=== PATIENT | female | born 1945 | race Caucasian/White ===

== ENCOUNTER → 2017-12-15 | Outpatient (CLI) | payer BC | LOC: MAMMO 14:29 | DX: Z13.820 Encounter for screening for osteoporosis (principal); M85.80 Other specified disorders of bone density and structure, unspecified site ==

== ENCOUNTER 2019-05-10 14:56 | Emergency (ER) | payer BC ==
[~2019-05-10] VITALS: Ht 157.5 cm; Wt 47.3 kg
[2019-05-10] MEDS ORDERED: ZYRTEC10 M3 PO (15:11)
[2019-05-10] MEDS ORDERED: SYNTHROID0.05 MG PO (15:11)
[2019-05-10] MEDS ORDERED: ZOLOFT25 M1 PO (15:12)
[2019-05-10 16:06] LABS: EOS # 0.1 (0.04-0.40); EOS % 1.8 % (1.0-5.0); HEMATOCRIT 39.9 % (37.0-47.0); HEMOGLOBIN 12.8 g/dL (12.5-16.0); LYMPH# 1.4 (1.50-4.00); MEAN CELL VOLUME 94 fl (78-100); MEAN CORPUSCULAR HEMOGLOBIN 30 pg (27-31); MEAN CORPUSCULAR HGB CONC 32 g/dL (33-37); MEAN PLATELET VOLUME 9.6 fl (7.4-10.4); MONO # 0.5 (0.20-0.80); NEU # 3.6 (1.40-6.50); PLATELET COUNT 283 K/mm3 (130-400); RED BLOOD COUNT 4.23 M/mm3 (4.10-5.30); RED CELL DISTRIBUTION WIDTH 12.4 % (11.5-14.5); WHITE BLOOD COUNT 5.6 K/mm3 (4.8-10.8)
[2019-05-10 16:13] LABS: ALBUMIN 3.9 g/dL (3.4-4.8)
[2019-05-10 16:14] LABS: POTASSIUM 4.1 mmol/L (3.5-5.1)
[2019-05-10 16:15] LABS: CALCIUM 9.5 mg/dL (8.3-10.5)
[2019-05-10 16:16] LABS: TOTAL PROTEIN 6.8 g/dL (6.2-8.1)
[2019-05-10 16:18] LABS: TOTAL BILIRUBIN 0.3 mg/dL (0.2-1.2)
[2019-05-10 18:14] VITALS: BP 120/73
== END 2019-05-10 18:15 | disposition home or self-care (01) ==
LOC: ED 14:56
PROVIDERS: Nurse Practitioner Family
DX: S92.252A Displaced fracture of navicular [scaphoid] of left foot, initial encounter for closed fracture (principal); S09.90XA Unspecified injury of head, initial encounter; M25.511 Pain in right shoulder; S90.31XA Contusion of right foot, initial encounter; F32.9 Major depressive disorder, single episode, unspecified; E07.9 Disorder of thyroid, unspecified; W11.XXXA Fall on and from ladder, initial encounter; Y92.009 Unspecified place in unspecified non-institutional (private) residence as the place of occurrence of the external cause
CPT/HCPCS: L4386

== ENCOUNTER → 2019-05-19 | Outpatient (CLI) | payer BC ==
[2019-05-10 18:14] VITALS: BP 120/73
[~2019-05-19] MED LIST: SYNTHROID0.05 MG PO; ZOLOFT25 M1 PO; ZYRTEC10 M3 PO
== END ==
LOC: RAD 08:21
DX: E04.1 Nontoxic single thyroid nodule (principal); Z90.89 Acquired absence of other organs

== ENCOUNTER → 2020-02-22 | Outpatient (CLI) | payer BC | LOC: MAMMO 13:45 | DX: Z12.31 Encounter for screening mammogram for malignant neoplasm of breast (principal) ==

== ENCOUNTER → 2020-05-10 | Outpatient (CLI) | payer BC | LOC: RAD 14:56 → LAB 14:56 → RAD 15:00 | DX: E04.1 Nontoxic single thyroid nodule (principal); Z68.20 Body mass index [BMI] 20.0-20.9, adult ==

== ENCOUNTER → 2021-02-27 | Outpatient (CLI) | payer BC | LOC: MAMMO 10:36 | DX: Z12.31 Encounter for screening mammogram for malignant neoplasm of breast (principal); M85.80 Other specified disorders of bone density and structure, unspecified site ==

== ENCOUNTER → 2021-11-26 | Outpatient (CLI) | payer BC | LOC: VAS 13:49 → RAD 14:00 | DX: R00.2 Palpitations (principal) ==

== ENCOUNTER → 2022-09-11 | Outpatient (CLI) | payer BC | LOC: RAD 09:14 | DX: M19.012 Primary osteoarthritis, left shoulder (principal); M19.011 Primary osteoarthritis, right shoulder; M17.0 Bilateral primary osteoarthritis of knee; M25.462 Effusion, left knee ==

== ENCOUNTER → 2023-04-07 | Outpatient (CLI) | payer BC | LOC: MAMMO 08:23 | DX: Z12.31 Encounter for screening mammogram for malignant neoplasm of breast (principal); Z13.820 Encounter for screening for osteoporosis; M85.80 Other specified disorders of bone density and structure, unspecified site ==

== ENCOUNTER → 2023-09-02 | Outpatient (CLI) | payer BC | LOC: RAD 07:56 | DX: M25.761 Osteophyte, right knee (principal) ==

== ENCOUNTER 2023-12-22 12:09 | Emergency (ER) | payer BC ==
[~2023-12-22] VITALS: Ht 157.5 cm; Wt 47.3 kg
[2023-12-22] MEDS ORDERED: ASPIRIN 81M81 MG/TA2 PO (12:17)
[2023-12-22] MEDS ORDERED: NS 1,000 ML IV SCH (12:30)
[2023-12-22] MEDS ORDERED: Ondansetron 4 MG/2 ML VIAL IV ONE (12:30)
[2023-12-22] MEDS ORDERED: Meclizine 12.5 MG TAB PO ONE (12:45)
[2023-12-22 12:51] LABS: BASO # 0.04 K/mm3 (0.02-0.10); EOS # 0.03 K/mm3 (0.04-0.40); EOS % 0.6 % (1.0-5.0); HEMATOCRIT 38.7 % (37.0-47.0); HEMOGLOBIN 13.2 g/dL (12.5-16.0); LYMPH# 1.24 K/mm3 (1.50-4.00); MEAN CELL VOLUME 94 fl (78-100); MEAN CORPUSCULAR HEMOGLOBIN 32 pg (27-31); MEAN CORPUSCULAR HGB CONC 34 g/dL (33-37); MEAN PLATELET VOLUME 9.5 fl (7.4-10.4); MONO # 0.27 K/mm3 (0.20-0.80); NEU # 3.37 K/mm3 (1.40-6.50); PLATELET COUNT 242 K/mm3 (130-400); RED CELL DISTRIBUTION WIDTH 11.8 % (11.5-14.5)
[2023-12-22 12:59] LABS: SODIUM 129 mmol/L (136-145)
[2023-12-22 13:00] LABS: CALCIUM 9.6 mg/dL (8.3-10.5)
[2023-12-22 13:01] LABS: GLUCOSE 115 mg/dL (65-105); TOTAL PROTEIN 6.4 g/dL (6.2-8.1)
[2023-12-22 13:02] LABS: CARBON DIOXIDE 25 mmol/L (23-31)
[2023-12-22 13:03] LABS: TOTAL BILIRUBIN 0.7 mg/dL (0.2-1.2)
[2023-12-22 13:06] LABS: AST-SGOT 30 U/L (5-34)
[2023-12-22 13:07] LABS: ALT/SGPT 23 U/L (0-55)
[2023-12-22 13:14] LABS: TROPONIN-I < 0.030 ng/mL (0.00-0.033)
[2023-12-22] MEDS ORDERED: Acetaminophen 325 MG TAB PO ONE (14:15)
[2023-12-22 14:29] LABS: PH-URINE 7.5 (5.0 - 8.0); URINE APPEARANCE CLEAR (CLEAR); URINE BILIRUBIN NEGATIVE (NEGATIVE); URINE BLOOD NEGATIVE (NEGATIVE); URINE COLOR YELLOW (YELLOW); URINE GLUCOSE NEGATIVE (NEGATIVE); URINE KETONE 1+ (NEGATIVE); URINE LEUKOCYTE ESTERASE NEGATIVE (NEGATIVE); URINE NITRATE NEGATIVE (NEGATIVE); URINE PROTEIN(semi-quant) NEGATIVE (NEGATIVE); URINE WBC 0-1 /hpf (0-3)
[2023-12-22] MEDS ORDERED: ONDANSETRON HYDR4 MG PO (14:40)
[2023-12-22] MEDS ORDERED: MECLIZINE PO (14:40)
[2023-12-22 15:23] VITALS: BP 110/66
== END 2023-12-22 15:13 | disposition home or self-care (01) ==
LOC: ED 12:09
PROVIDERS: Physician Assistant
DX: E87.1 Hypo-osmolality and hyponatremia (principal)
CPT/HCPCS: J2405; J7030

== ENCOUNTER → 2024-04-11 | Outpatient (CLI) | payer BC ==
[~2024-04-11] MED LIST changes: +ASPIRIN 81M81 MG/TA2 PO; +MECLIZINE PO; +ONDANSETRON HYDR4 MG PO
== END ==
LOC: MAMMO 13:28
DX: Z12.31 Encounter for screening mammogram for malignant neoplasm of breast (principal)